=== PATIENT | male | born 1970 | race Caucasian/White ===

== ENCOUNTER 2022-12-12 09:36 | Day surgery (SDC) | payer MEDICARE ==
[~2022-12-12] VITALS: Ht 175.3 cm; Wt 106.8 kg
[~2022-12-12 09:36] MED LIST: ALPR.5 PO; DIPATR PO; HYDACE5 PO; LAMO100 PO; LORA1 PO; Lamisil250 MG PO; NAPR500 PO; PARO20 PO; PARO25 PO; PENVK250 PO; PRED20 PO; QUET100 PO; QUET300 PO; SERT50 PO; TRAM50 PO; Zofran4 MG PO
--- NOTE | 2022-12-12 11:13 | NUR ---
Ambulatory in Day Surgery History, Chart, Medications and Allergies reviewed before start of procedure. Pre-Op teaching done. Pt verbalizes understanding. Patient States Post-Procedure ride home has been arranged.
--- NOTE | 2022-12-12 11:19 | NUR ---
12/12/22 1119 Candelario Winters HISTORY, CHART, MEDICATIONS AND ALLERGIES REVIEWED BEFORE START OF PROCEDURE. PATIENT CONFIRMS NPO STATUS AND AGREES WITH SCHEDULED PROCEDURE. 3-LEAD EKG REVIEWED WITH PHYSICIAN PRIOR TO START OF PROCEDURE. MONITOR INTACT WITH CONTINUOUS PULSE OXIMETRY,CAPNOGRAPHY, 3-LEAD EKG, INTERMITTENT BP. SUPPLEMENTAL O2 TO BE TITRATED THROUGHOUT PROCEDURE TO MAINTAIN O2 SATURATION ABOVE 90%. PATIENT DETERMINED TO BE ASA APPROPRIATE FOR PROPOFOL SEDATION PRIOR TO START OF PROCEDURE BY DR. RODRIGUEZ
--- NOTE | 2022-12-12 12:43 | NUR ---
Discharge instructions reviewed with patient. Patient verbalizes understanding. Copy given to patient to take home. Patient States Post-Procedure ride home has been arranged. Discharged via wheelchair to private car for ride home.
== END 2022-12-12 23:41 | disposition home or self-care (01) ==
LOC: ORSCMMR 09:36 → ORD 10:30 → ORSCMMR 10:30
PROVIDERS: Internal Medicine Gastroenterology
PROC: 0DBN8ZX Excision of Sigmoid Colon, Via Natural or Artificial Opening Endoscopic, Diagnostic (ICD-10-PCS; principal; 2022-12-12 10:30)
PROC: 0DBL8ZX Excision of Transverse Colon, Via Natural or Artificial Opening Endoscopic, Diagnostic (ICD-10-PCS; principal; 2022-12-12 10:30)
PROC: 0DBM8ZX Excision of Descending Colon, Via Natural or Artificial Opening Endoscopic, Diagnostic (ICD-10-PCS; principal; 2022-12-12 10:30)
DX: Z12.11 Encounter for screening for malignant neoplasm of colon (principal); D12.5 Benign neoplasm of sigmoid colon; D12.3 Benign neoplasm of transverse colon; D12.4 Benign neoplasm of descending colon; J44.9 Chronic obstructive pulmonary disease, unspecified; D75.1 Secondary polycythemia; F17.210 Nicotine dependence, cigarettes, uncomplicated; Z79.899 Other long term (current) drug therapy; E66.9 Obesity, unspecified; Z68.35 Body mass index [BMI] 35.0-35.9, adult
CPT/HCPCS: 88305; J2250; J2704; J7120

== ENCOUNTER 2023-07-08 07:01 | Day surgery (SDC) | payer MEDICARE, OTHER ==
[2023-07-08] VITALS (32 sets, daily range): BP systolic 99–166; BP diastolic 64–103
[~2023-07-08] VITALS: Ht 177.8 cm; Wt 107.6 kg
[~2023-07-08 07:01] MED LIST changes: +ESCI10 PO; +FISH OIL 1,2001 EAC7 PO; +Percocet 5-3251 EACH PO; +Vitamin B Comple1 EA PO
--- NOTE | 2023-07-08 07:38 | NUR ---
Ambulatory in Day Surgery. History, Chart, Medications and Allergies reviewed before start of procedure. Lungs clear T/O to Auscultation. Patient confirms NPO status and agrees with scheduled surgery. Pre-Op teaching done. Pt verbalizes understanding. Patient States Post-Procedure ride home has been arranged.
--- NOTE | 2023-07-08 08:15 | NUR ---
07/08/23 0815 Bert Barrios HISTORY, CHART, MEDICATIONS AND ALLERGIES REVIEWED BEFORE START OF PROCEDURE. PATIENT CONFIRMS NPO STATUS AND AGREES WITH SCHEDULED PROCEDURE. 3-LEAD EKG REVIEWED WITH PHYSICIAN PRIOR TO START OF PROCEDURE. MONITOR INTACT WITH CONTINUOUS PULSE OXIMETRY,CAPNOGRAPHY, 3-LEAD EKG, INTERMITTENT BP. SUPPLEMENTAL O2 TO BE TITRATED THROUGHOUT PROCEDURE TO MAINTAIN O2 SATURATION ABOVE 90%. PATIENT DETERMINED TO BE ASA APPROPRIATE FOR PROPOFOL SEDATION PRIOR TO START OF PROCEDURE BY
== END 2023-07-08 22:57 | disposition home or self-care (01) ==
LOC: ORSCMMR 07:01 → ORD 08:00 → ORSCMMR 22:57
PROVIDERS: Internal Medicine Gastroenterology
PROC: 0DBL8ZX Excision of Transverse Colon, Via Natural or Artificial Opening Endoscopic, Diagnostic (ICD-10-PCS; principal; 2023-07-08 08:00)
PROC: 0DBM8ZX Excision of Descending Colon, Via Natural or Artificial Opening Endoscopic, Diagnostic (ICD-10-PCS; principal; 2023-07-08 08:00)
PROC: 0DBN8ZX Excision of Sigmoid Colon, Via Natural or Artificial Opening Endoscopic, Diagnostic (ICD-10-PCS; principal; 2023-07-08 08:00)
PROC: 0DBP8ZX Excision of Rectum, Via Natural or Artificial Opening Endoscopic, Diagnostic (ICD-10-PCS; principal; 2023-07-08 08:00)
DX: Z86.010 Personal history of colon polyps (principal); D12.5 Benign neoplasm of sigmoid colon; D12.3 Benign neoplasm of transverse colon; D12.4 Benign neoplasm of descending colon; D12.8 Benign neoplasm of rectum; K63.5 Polyp of colon; J44.9 Chronic obstructive pulmonary disease, unspecified; F41.9 Anxiety disorder, unspecified; Z79.899 Other long term (current) drug therapy; M96.1 Postlaminectomy syndrome, not elsewhere classified; F17.210 Nicotine dependence, cigarettes, uncomplicated; E66.9 Obesity, unspecified; Z68.35 Body mass index [BMI] 35.0-35.9, adult
CPT/HCPCS: 88305; J2250; J2704; J7120

== ENCOUNTER 2024-11-04 17:23 | Observation (INO) | payer MEDICARE, OTHER ==
[~2024-11-04] VITALS: Ht 175.3 cm; Wt 106.6 kg
[~2024-11-04 17:23] MED LIST changes: +ATOR20 PO; +BACL10; -ESCI10 PO; +ESCI20 PO; +SPIRIVA RESPIMAT4 G2 INH; +TADA10TA; +TERB250 PO; +TOPI50 PO
[2024-11-04] MEDS ORDERED: MethylPREDNISolone Sod Succ 125 MG Vial IV ONE (17:55)
[2024-11-04] MEDS ORDERED: Ipratropium/Albuterol SulF 2.5-0.5MG/3 ML Amp INH ONE (17:55)
[2024-11-04 17:59] LABS: BASOPHILS ABSOLUTE AUTO 0.02 K/mm3 (0.00-0.23); BASOPHILS PERCENT AUTO 0 % (0-2); EOSINOPHILS ABSOLUTE AUTO 0.01 K/mm3 (0.00-0.68); EOSINOPHILS PERCENT AUTO 0 % (0-6); Hematocrit 53.7 % (37.0-53.0); Hemoglobin 18.2 g/dL (13.5-17.5); IMMATURE GRAN ABSOLUTE AUTO 0.01 K/mm3 (0.00-0.10); IMMATURE GRAN PERCENT AUTO 0 % (0-1); LYMPHOCYTES ABSOLUTE AUTO 2.05 K/mm3 (0.84-5.20); LYMPHOCYTES PERCENT AUTO 29 % (21-46); MONOCYTES ABSOLUTE AUTO 0.64 K/mm3 (0.16-1.47); MONOCYTES PERCENT AUTO 9 % (4-13); Mean Corpuscular HGB 33.3 pg (26.0-34.0); Mean Corpuscular HGB Conc 33.9 g/dL (31.5-36.5); Mean Corpuscular Volume 98 fL (80-100); NEUTROPHILS ABSOLUTE AUTO 4.34 K/mm3 (1.96-9.15); NEUTROPHILS PERCENT AUTO 61 % (41-73); Platelet Count 124 K/mm3 (150-400); RDW Coefficient Variation 12.4 % (11.7-14.2); RDW Standard Deviation 45.8 fL (35.1-46.3); Red Blood Cell Count 5.47 M/mm3 (4.30-5.90); White Blood Cell Count 7.07 K/mm3 (4.00-11.30)
[2024-11-04 18:17] LABS: Base Excess Venous 4.5 mmol/L; Bicarbonate Venous 27.1 mmol/L (24.0-30.0); PCO2 Venous 48.8 mmHg (38-42); pH Blood Venous 7.39 (7.34-7.37)
[2024-11-04 18:21] LABS: Albumin, Blood 3.4 g/dL (3.4-5.0); Albumin/Globulin Ratio 0.8 (0.8-1.8); Bilirubin, Total 0.3 mg/dL (0.1-1.0); Bun/Creatinine Ratio 12.7 (12.0-20.0); Calcium, Blood 8.7 mg/dL (8.5-10.1); Creatinine, Blood 0.86 mg/dL (0.60-1.20); Total Protein, Blood 7.4 g/dL (6.4-8.2)
[2024-11-04 18:23] LABS: D-Dimer, Quantitative 0.89 mg/L FEU (0.00-0.52); International Normalized Ratio 0.97; Prothrombin Time Results 10.4 Sec (9.7-11.5)
[2024-11-04 18:24] LABS: Magnesium, Blood 2.1 mg/dL (1.6-2.4)
[2024-11-04 18:26] LABS: Influenza B, PCR NEGATIVE (NEGATIVE); Resp Syncytial Virus, PCR NEGATIVE (NEGATIVE); SARS-Cov-2 (COVID-19) PCR, MMC NEGATIVE (NEGATIVE)
[2024-11-04 18:30] LABS: Alanine Aminotransfer (ALT/SGP 51 U/L (12-78); Albumin, Blood 3.4 g/dL (3.4-5.0); Albumin/Globulin Ratio 0.8 (0.8-1.8); Alk Phos 88 U/L (50-136); Aspartate Aminotrans (AST/SGOT 73 U/L (12-37); Bilirubin, Direct <0.1 mg/dL (0.0-0.3); Bilirubin, Indirect Unable to Calculate mg/dL (0.1-0.7); Bilirubin, Total 0.4 mg/dL (0.1-1.0); Phosphorus, Blood 2.4 mg/dL (2.5-4.9); Total Protein, Blood 7.4 g/dL (6.4-8.2)
[2024-11-04 18:37] LABS: Influenza A, PCR POSITIVE (NEGATIVE)
[2024-11-04] MEDS ORDERED: Oseltamivir Phosphate 75 MG Cap PO ONE (18:40)
[2024-11-04] MEDS ORDERED: REXULTI1 MG PO (19:30)
[2024-11-04] MEDS ORDERED: Ipratropium/Albuterol SulF 2.5-0.5MG/3 ML Amp INH SCH (19:35)
[2024-11-04] MEDS ORDERED: NS 1,000 ML IV SCH (19:35)
[2024-11-04] MEDS ORDERED: Albuterol 2.5 MG/3 ML VIAL INH PRN (19:35)
[2024-11-04] MEDS ORDERED: Ondansetron HCl 2 MG / ML 2ML Vial IV PRN (19:35)
[2024-11-04] MEDS ORDERED: QUEtiapine Fumarate 50 MG TAB PO SCH (21:00)
[2024-11-04] MEDS ORDERED: FLU VACC TS2024-25(6MOS UP)/PF 45 MCG/0.5 ML SYRINGE IM ONE (21:00)
[2024-11-04] MEDS ORDERED: Oseltamivir Phosphate 75 MG Cap PO SCH (21:00)
[2024-11-04 21:47] VITALS: BP 147/79
[2024-11-04] MEDS ORDERED: Nicotine 21 MG PATCH TOP SCH (22:15)
[2024-11-04] MEDS ORDERED: AMITRIPTYLINE H25 MG PO (22:16)
[2024-11-04] MEDS ORDERED: VRAYLAR1.5 MG PO (22:17)
[2024-11-04] MEDS ORDERED: REXULTI2 MG PO (22:19)
[2024-11-05 05:03] LABS: BASOPHILS ABSOLUTE AUTO 0.01 K/mm3 (0.00-0.23); BASOPHILS PERCENT AUTO 0 % (0-2); EOSINOPHILS PERCENT AUTO 0 % (0-6); Hematocrit 54.5 % (37.0-53.0); Hemoglobin 18.3 g/dL (13.5-17.5); IMMATURE GRAN ABSOLUTE AUTO 0.01 K/mm3 (0.00-0.10); IMMATURE GRAN PERCENT AUTO 0 % (0-1); LYMPHOCYTES ABSOLUTE AUTO 0.87 K/mm3 (0.84-5.20); LYMPHOCYTES PERCENT AUTO 20 % (21-46); MONOCYTES ABSOLUTE AUTO 0.17 K/mm3 (0.16-1.47); MONOCYTES PERCENT AUTO 4 % (4-13); Mean Corpuscular HGB 33.3 pg (26.0-34.0); Mean Corpuscular HGB Conc 33.6 g/dL (31.5-36.5); Mean Corpuscular Volume 99 fL (80-100); Mean Platelet Volume 10.3 fL (9.1-12.4); NEUTROPHILS ABSOLUTE AUTO 3.25 K/mm3 (1.96-9.15); NEUTROPHILS PERCENT AUTO 76 % (41-73); Platelet Count 124 K/mm3 (150-400); RDW Coefficient Variation 12.6 % (11.7-14.2); RDW Standard Deviation 46.8 fL (35.1-46.3); White Blood Cell Count 4.31 K/mm3 (4.00-11.30)
--- NOTE | 2024-11-05 05:12 | NUR ---
SHIFT SUMMARY PT ALERT AND ORIENTED TIMES 4 . PT ON 5L O2, ROOM AIR IS BASELINE. PT HAS SCD S. AND ON ISO PRECAUTIONS FOR FLU A. PT HAS HX OF COPD, BIPOLAR, DEPRESSION, CHF, AND ANXIETY. PT ABLE TO MAKE NEEDS KNOWN AND RECEPTIVE TO CARE. PT IS INDEPENDENT AND ABLE TO AMBULATE TO THE TOILET. BED IN LOW POSITION, CALL LIGHT WITHIN REACH, RAILS TIMES 2.
[2024-11-05 05:13] VITALS: BP 134/60
[2024-11-05 05:36] LABS: Bun/Creatinine Ratio 16.2 (12.0-20.0); Calcium, Blood 8.8 mg/dL (8.5-10.1); Creatinine, Blood 0.8 mg/dL (0.60-1.20); Potassium, Blood 3.9 mmol/L (3.5-5.5)
[2024-11-05 07:12] VITALS: BP 133/76
[2024-11-05] MEDS ORDERED: ARIPiprazole 10 MG Tab PO SCH (09:00)
[2024-11-05] MEDS ORDERED: Nicotine 21 MG PATCH TOP SCH (09:00)
[2024-11-05] MEDS ORDERED: Enoxaparin 40 MG/0.4 ML SYR SC SCH (09:00)
[2024-11-05] MEDS ORDERED: Oseltamivir Phosphate 75 MG Cap PO SCH (09:00)
[2024-11-05] MEDS ORDERED: PredniSONE 20 MG Tab PO SCH (09:00)
[2024-11-05] MEDS ORDERED: OSEL75CA PO (14:49)
[2024-11-05] MEDS ORDERED: Prednisone10 MG PO (14:50)
[2024-11-05] MEDS ORDERED: ALBU90OI INH (14:52)
--- NOTE | 2024-11-05 15:22 | NUR ---
DISCHARGE PT DC TO HOME AT THIS TIME. PT HAS BEEN STABLE ON RA, SATS 94-96%. PT TAKING PO WELL. VERBALIZED UNDERSTANDING OF INSTRUCTIONS, FOLLOW UP, PROBLEMS TO REPORT AND MEDICATIONS. PRESCRIPTION FAXED TO [facility]. IV'S DC'D WNL. PT LEFT VIA WHEELCHAIR TO CAR WITH BELONGINGS.
== END 2024-11-05 15:31 | disposition home or self-care (01) ==
LOC: ER 17:23 → MEDS 17:24
PROVIDERS: Nurse Practitioner Acute Care; Physician Assistant; Student in an Organized Health Care Education/Training Program; ADMIT Student in an Organized Health Care Education/Training Program
DX: J10.1 Influenza due to other identified influenza virus with other respiratory manifestations (principal); J44.1 Chronic obstructive pulmonary disease with (acute) exacerbation; J96.01 Acute respiratory failure with hypoxia; R65.10 Systemic inflammatory response syndrome (SIRS) of non-infectious origin without acute organ dysfunction; F31.9 Bipolar disorder, unspecified; D75.1 Secondary polycythemia; F17.210 Nicotine dependence, cigarettes, uncomplicated; E66.01 Morbid (severe) obesity due to excess calories; Z68.34 Body mass index [BMI] 34.0-34.9, adult; Z79.899 Other long term (current) drug therapy
CPT/HCPCS: 0241U; 36415; 71046; 71260; 80048; 80053; 80076; 82803; 83605; 83735; 84100; 84145; 84484; 85025; 85379; 85610; 85730; 87040; 90656; 93005; 93010; 94640; 94664; 94760; 96374-59; 99285-25; A9270; G0008; G0378; J2919; J7030; J7512; Q9967

== ENCOUNTER 2025-05-11 00:44 | Emergency (ER) | payer MEDICARE, OTHER ==
[~2025-05-11] VITALS: Ht 175.3 cm; Wt 104.3 kg
[~2025-05-11 00:44] MED LIST changes: +ALBU90OI INH; +AMITRIPTYLINE H25 MG PO; +OSEL75CA PO; +Prednisone10 MG PO; +REXULTI1 MG PO; +REXULTI2 MG PO; +VRAYLAR1.5 MG PO
[2025-05-11 00:56] VITALS: BP 168/95
[2025-05-11] MEDS ORDERED: Ketorolac Tromethamine 15mg Vial IV ONE (01:05)
[2025-05-11] MEDS ORDERED: Prochlorperazine Edisylate 10 mg Vial IV ONE (01:05)
[2025-05-11] MEDS ORDERED: Dexamethasone Sod Phos 10 MG/ML 1ML VIAL IV ONE (01:05)
[2025-05-11 01:29] LABS: BASOPHILS ABSOLUTE AUTO 0.06 K/mm3 (0.00-0.23); BASOPHILS PERCENT AUTO 1 % (0-2); EOSINOPHILS ABSOLUTE AUTO 0.10 K/mm3 (0.00-0.68); EOSINOPHILS PERCENT AUTO 1 % (0-6); Hematocrit 54.7 % (37.0-53.0); Hemoglobin 18.6 g/dL (13.5-17.5); IMMATURE GRAN ABSOLUTE AUTO 0.04 K/mm3 (0.00-0.10); IMMATURE GRAN PERCENT AUTO 0 % (0-1); LYMPHOCYTES ABSOLUTE AUTO 2.25 K/mm3 (0.84-5.20); LYMPHOCYTES PERCENT AUTO 21 % (21-46); MONOCYTES ABSOLUTE AUTO 0.65 K/mm3 (0.16-1.47); MONOCYTES PERCENT AUTO 6 % (4-13); Mean Corpuscular HGB Conc 34.0 g/dL (31.5-36.5); Mean Corpuscular Volume 97 fL (80-100); NEUTROPHILS ABSOLUTE AUTO 7.49 K/mm3 (1.96-9.15); NEUTROPHILS PERCENT AUTO 71 % (41-73); NRBC ABSOLUTE 0.00 K/mm3 (0.00-0.02); NRBC Auto 0.0 /100 WBC (0.0-0.2); Platelet Count 162 K/mm3 (150-400); RDW Coefficient Variation 12.4 % (11.7-14.2); RDW Standard Deviation 44.2 fL (35.1-46.3)
[2025-05-11 02:11] LABS: Alanine Aminotransfer (ALT/SGP 39.0 U/L (12-78); Albumin, Blood 3.4 g/dL (3.4-5.0); Albumin/Globulin Ratio 0.8 (0.8-1.8); Anion Gap 7.0 mmol/L (3-11); Aspartate Aminotrans (AST/SGOT 46.0 U/L (12-37); Bilirubin, Total 0.5 mg/dL (0.1-1.0); Blood Urea Nitrogen 13.0 mg/dL (8-24); CO2, Blood 26.0 mmol/L (21-32); Calcium, Blood 8.6 mg/dL (8.5-10.1); Chloride, Blood 111.0 mmol/L (98-108); Creatinine, Blood 0.81 mg/dL (0.60-1.20); Globulin, Blood 4.2 g/dL (2.2-4.0); Glucose, Blood 122.0 mg/dL (70-99); Potassium, Blood 5.0 mmol/L (3.5-5.5); Sodium, Blood 139.0 mmol/L (136-145); Total Protein, Blood 7.6 g/dL (6.4-8.2)
== END 2025-05-11 02:34 | disposition home or self-care (01) ==
LOC: ER 00:44
PROVIDERS: Emergency Medicine
DX: R51.9 Headache, unspecified (principal); J44.9 Chronic obstructive pulmonary disease, unspecified; Z79.899 Other long term (current) drug therapy; F17.210 Nicotine dependence, cigarettes, uncomplicated
CPT/HCPCS: 80053; 85025; 96374; 96375; 99283-25; J0780; J1100; J1885